=== PATIENT | female | born 1960 | race Caucasian/White ===

== ENCOUNTER → 2017-02-22 | Outpatient (CLI) | payer OTHER ==
[~2017-02-22] MED LIST: GADOBUTROL 10 ML VIAL IVP ONE
== END ==
LOC: FIMAGING 07:42
PROVIDERS: ATTEND Internal Medicine Hematology & Oncology
DX: Z12.39 Encounter for other screening for malignant neoplasm of breast (principal); R92.8 Other abnormal and inconclusive findings on diagnostic imaging of breast; Z85.3 Personal history of malignant neoplasm of breast; Z92.3 Personal history of irradiation; Z92.21 Personal history of antineoplastic chemotherapy
CPT/HCPCS: 0159T; 77059; A9585; C8908

== ENCOUNTER → 2017-07-26 | Outpatient (CLI) | payer OTHER | LOC: BMCIMAGING 13:43 | PROVIDERS: ATTEND Family Medicine | DX: Z09 Encounter for follow-up examination after completed treatment for conditions other than malignant neoplasm (principal); R05 Cough ==

== ENCOUNTER → 2017-08-01 | Outpatient (CLI) | payer OTHER | LOC: FIMAGING 12:42 | PROVIDERS: ATTEND Internal Medicine Hematology & Oncology | DX: Z12.31 Encounter for screening mammogram for malignant neoplasm of breast (principal); Z85.3 Personal history of malignant neoplasm of breast | CPT/HCPCS: G0202 ==

== ENCOUNTER → 2018-02-27 | Outpatient (CLI) | payer OTHER | LOC: CIMAGING 13:05 | PROVIDERS: ATTEND Surgery | DX: N64.59 Other signs and symptoms in breast (principal); Z85.3 Personal history of malignant neoplasm of breast | CPT/HCPCS: 76641-PO ==

== ENCOUNTER 2018-03-22 10:34 | Day surgery (SDC) | payer OTHER ==
[2018-03-22] MEDS ORDERED: ceFAZolin 2 GM/DEXTROSE 100 ML IV ONE (10:46)
[2018-03-22] MEDS ORDERED: LR 1,000 ML IV ONE (10:46)
[2018-03-22] MEDS ORDERED: BUPIVACAINE 0.25% 30 ML SDV ONE (11:00)
[2018-03-22] MEDS ORDERED: PROPOFOL/EMULSION 500 MG/50 ML BOTTLE IV ONE (11:29)
[2018-03-22] MEDS ORDERED: fentaNYL 100 MCG/2 ML INJ ONE ×2 (11:32→13:31)
[2018-03-22] MEDS ORDERED: MIDAZOLAM 2 MG/2 ML VIAL IVP ONE (11:33)
--- NOTE | 2018-03-22 11:35 | PDANEPAE ---
ANE History of Present Illness 57 year old woman with breast cancer for port placement. ANE Past Medical History - Cardiovascular History Hx Hypertension: No Hx Arrhythmias: Yes Hx Chest Pain: No Hx Coronary Artery / Peripheral Vascular Disease: Yes Hx CHF / Valvular Disease: No Hx Palpitations: Yes Cardiovascular History Comment: Hx is for SVT, metroprolol is for SVT, pt has noticed some episodes lately, Pt has been talking with Dr Saenz regarding ablation, pt wants to do this before ablation. Nuclear stress test in January [address] Saenz. - Pulmonary History Hx COPD: No Hx Asthma/Reactive Airway Disease: No Hx Recent Upper Respiratory Infection: No Hx Oxygen in Use at Home: No Hx Sleep Apnea: No Sleep Apnea Screening Result - Last Documented: Negative - Neurologic History Hx Cerebrovascular Accident: No Hx Seizures: No Hx Dementia: No - Endocrine History Hx Diabetes: No - Renal History Hx Renal Disorders: No - Liver History Hx Hepatic Disorders: No - Neurological & Psychiatric Hx Hx Neurological and Psychiatric Disorders: No - Cancer History Hx Cancer: Yes Cancer History Comment: L BREAST - Congenital Disorder History Hx Congenital Disorders: No - GI History Hx Gastrointestinal Disorders: No - Other Health History Other Health History: MILD DIFFICULTY WITH SWALLOWING RESIDUAL OF LAST CHEMO . JERI BREAST REDNESS - Chronic Pain History Chronic Pain: Yes (JERI BREAST) - Surgical History Prior Surgeries: LUMPECTOMY L 09/03/2015. ABLATION 2016 ANE Review of Systems Review of systems is: negative Review of Systems: - Exercise capacity METS (RN): 4 METS ANE Patient History - Allergies Allergies/Adverse Reactions: corn Allergy (Verified 03/16/18 12:08) DEPRESSION erythromycin base Allergy (Verified 03/16/18 12:07) GI ISSUES Gadolinium-Containing Contrast Medi Allergy (Verified 03/16/18 12:07) Rash Sulfa (Sulfonamide Antibiotics) Allergy (Verified 03/16/18 12:07) ITCH & BURNING wheat Allergy (Verified 03/16/18 12:08) Congestion - Home Medications Home Medications: Aspirin [Aspirin 81mg (*)] 81 mg PO DAILY 01/30/15 [Last Taken 03/17/18] LORazepam [Ativan (*)] 1 mg PO HS PRN 01/30/16 [Last Taken 03/21/18] Herbals/Supplements -Info Only 1 ea PO DAILY 08/08/16 [Last Taken 03/17/18] Melatonin [Melatonin 3 MG (*)] 3 mg PO HS 08/08/16 [Last Taken 03/21/18] - NPO status NPO Since - Liquids (Date): 03/22/18 NPO Since - Liquids (Time): 09:00 NPO Since - Solids (Date): 03/21/18 NPO Since - Solids (Time): 20:00 - Smoking Hx Smoking Status: Former smoker - Family Anes Hx Family Hx Anesthesia Complications: none ANE Labs/Vital Signs - Vital Signs Blood Pressure: 111/70 Heart Rate: 58 Respiratory Rate: 16 O2 Sat (%): 99 Height: 162.56 cm Weight: 58.06 kg ANE Physical Exam - Airway Neck exam: FROM Mallampati Score: Class 1 Mouth exam: normal dental/mouth exam - Pulmonary Pulmonary: no respiratory distress - Cardiovascular Cardiovascular: regular rate and rhythym - ASA Status ASA Status: II ANE Anesthesia Plan Anesthesia Plan: MAC
--- NOTE | 2018-03-22 12:06 | PDHPUP ---
History & Physical Update H&P update statement: This history and physical update is based on an assessment of the patient which was completed after admission or registration (within 24 hours), but prior to the surgery/procedure. H&P update: H&P reviewed & patient examined, no change in patient's condition since H&P completed
--- NOTE | 2018-03-22 13:05 | POSTOPPROG ---
Post Op Note Date of Operation: 03/22/18 Surgeon: Savi Rojas Anesthesiologist: milagros Anesthesia: IV Sedation Pre-op Diagnosis: recurrent breast cancer Post-op Diagnosis: same Indication: 57 yo with recurrent breast cancer Procedure: R IJ port Findings: no unusual Inf/Abcess present in the surg proc area at time of surgery?: No EBL: Minimal Specimen(s): none
--- NOTE | 2018-03-22 13:33 | GOP ---
[f rep st] OPERATIVE REPORT DATE OF OPERATION: 03/22/2018 SURGEON: Savi Rojas MD ANESTHESIA: Monitored anesthesia care with IV sedation. ANESTHESIOLOGIST: Dr. Wendy Bolton MD. PREOPERATIVE DIAGNOSIS: Recurrent breast cancer. POSTOPERATIVE DIAGNOSIS: Recurrent breast cancer. PROCEDURE PERFORMED: Right ultrasound-guided internal jugular PowerPort placement. FINDINGS: Findings tip at the SVC-RA junction. SPECIMENS: None. ESTIMATED BLOOD LOSS: 5 cc. INDICATIONS: Maru Burns is a 57-year-old woman with recurrent breast cancer. She presents for a port for her chemotherapy. DESCRIPTION OF PROCEDURE: Patient was brought into the operating room, placed supine on the table, a nd monitored anesthesia care with IV sedation was performed. Her bilateral neck and chest were prepp ed and draped in the usual sterile fashion. She was placed in a Trendelenburg position. I used ultr asound to identify her right internal jugular vein. It was fully compressible. I accessed it with a large bore needle on the 2nd attempt with dark return of blood flow. I threaded the guidewire and r emoved the needle. Placement was confirmed with fluoroscopy. I created a pocket to accommodate the port in the right chest. I tunneled the catheter up to the insertion site and under fluoroscopy jimmy ured its size. Using the Seldinger technique, I placed a dilator and sheath over the wire, removed t he wire and the dilator. I passed the catheter through the sheath and peeled away the sheath. Place ment was confirmed with fluoroscopy. The port withdrew blood easily and was flushed with heparin. T he pocket was closed with 3-0 Vicryl followed by 4-0 Monocryl. The neck incision was closed with 4-0 Monocryl. Dermabond applied. I then reaccessed the port in anticipation of her having chemotherapy tomorrow. It withdrew blood and was flushed again. Gauze and Tegaderm were applied. She was awake jess in the operating room, transferred to PACU in stable condition. A chest x-ray is pending. /[id number]/MODL
[2018-03-22] MEDS ORDERED: MEPERIDINE 25 MG/0.5 ML AMP IVP PRN (13:46)
[2018-03-22] MEDS ORDERED: fentaNYL 100 MCG/2 ML INJ IVP PRN (13:46)
[2018-03-22] MEDS ORDERED: DEXAMETHASONE 4 MG/ML VIAL IVP PRN (13:46)
[2018-03-22] MEDS ORDERED: LR 500 ML IV PRN (13:46)
[2018-03-22] MEDS ORDERED: PROMETHAZINE HCL 25 MG/ML INJ IVP PRN (13:46)
[2018-03-22] MEDS ORDERED: NALOXONE HCL 0.4 MG/ML INJ IVP PRN (13:46)
[2018-03-22] MEDS ORDERED: DIAZEPAM 5 MG/ML 1 ML SYR IVP PRN (13:46)
[2018-03-22] MEDS ORDERED: HYDROCODONE/APAP 5/325 TAB PO PRN (13:46)
[2018-03-22] MEDS ORDERED: ONDANSETRON 4 MG/2 ML VIAL IVP PRN (13:46)
[2018-03-22] MEDS ORDERED: LABETALOL HCL 5 MG/ML 20 ML MDV IVP PRN (13:46)
[2018-03-22] MEDS ORDERED: ALBUTEROL 3 ML DEYVIAL IH PRN (13:46)
[2018-03-22] MEDS ORDERED: PHENYLEPHRINE HCL 100 MCG/ML SYR IVP PRN (13:46)
--- NOTE | 2018-03-22 13:47 | POSTANESTH ---
Post Anesthetic Evaluation Cardiovascular Status: Normal, Stable Respiratory Status: Normal, Stable Level of Consciousness/Mental Status: Can Participate in Eval Pain Control: Adequate, Prn Tx Ordered Nausea/Vomiting Control: Adequate, Prn Tx Ordered Complications Possibly Related to Anesthesia: None Noted
[2018-03-22 14:19] VITALS: BP 103/60
== END 2018-03-22 14:45 | disposition home or self-care (01) ==
LOC: FSGY 10:34
PROVIDERS: ATTEND Surgery
PROC: 02HV33Z Insertion of Infusion Device into Superior Vena Cava, Percutaneous Approach (ICD-10-PCS; principal; 2018-03-22 12:00)
PROC: 0JH60XZ Insertion of Tunneled Vascular Access Device into Chest Subcutaneous Tissue and Fascia, Open Approach (ICD-10-PCS; principal; 2018-03-22 12:00)
DX: C50.319 Malignant neoplasm of lower-inner quadrant of unspecified female breast (principal)
CPT/HCPCS: C1788; J0690; J1642; J2250; J2704; J3010

== ENCOUNTER → 2019-01-22 | Outpatient (CLI) | payer OTHER | LOC: FIMAGING 10:42 ==